=== PATIENT | female | born 2000 | race Caucasian/White ===

== ENCOUNTER 2023-11-22 08:07 | Outpatient (OUT) | payer OTHER, SELFPAY ==
--- NOTE | 2023-11-22 08:10 | US_ITS ---
The [address] [address] Patient Name: SUE ZIMMERMAN MRN: [id number] date: 2000 Sex: F Assigned Patient Location: [facility] Current Patient Location: [facility] Accession/Order Number: [id number] Exam Date: 11/22/2023 08:10 Report Date: 11/22/2023 11:19 At the request of: TRANG GEORGE Procedure: US pelvis w/ transvaginal EXAMINATION: US pelvis w/ transvaginal HISTORY: PELVIC PAIN COMPARISON: No relevant comparison available. FINDINGS: The uterus is normal in size, contour and echotexture measuring 6.9 x 2.7 x 4.6 cm., Anteverted, anteflexed. Endometrium measures 4 mm, normal. Areas of anechoic echogenicity in the cervix, nabothian cysts are favored The right ovary is normal measuring 1.6 x 0.9 x 1.1 cm. Normal color and Doppler flow The left ovary is normal measuring 1. Normal color and Doppler flow No free fluid US/US pelvis w/ transvaginal IMPRESSION: Normal examination. Electronically authenticated by: FERNANDO CHAVEZ Date: 11/22/2023 11:19
== END 2023-11-22 08:08 | disposition home or self-care (01) ==
LOC: NOMS 08:07
PROVIDERS: Family Provider Family Medicine; PCP Family Medicine; Visit Provider Obstetrics & Gynecology
DX: R10.2 Pelvic and perineal pain (principal)
CPT/HCPCS: 76830; 76856

== ENCOUNTER 2023-12-06 20:46 | Outpatient (REF) | payer OTHER, SELFPAY ==
--- OUTSIDE RECORDS SUMMARY | 2023-12-06 20:51 | XMS_ITS | CCD ---
Author Name Unknown Address [address] [place] [address] Organization [facility] Care Team Providers Care Bag Repairer Name Role Phone Zehra Teixeira MD Primary Care Provider TRANG MCKNIGHT Attending Unavailable TRANG MCKNIGHT Attending Unavailable Medications Current Medications Medication Drug Class(es) Dates Sig (Normalized) Sig (Original) desogestrel 0.15 mg / ethinyl estradiol 0.03 mg oral tablet (1 source) Progestin, Estrogen Start: 10-24-2023 take 1 tablet by mouth in the morning, then take 1 tablet by mouth once daily desogestrel-ethinyl estradiol (Apri) 0.15-30 MG-MCG tablet Indications: Encounter for other contraceptive management Take 1 tablet by mouth in the morning for 28 days. Take 1 tablet by mouth daily. 28 tablet 12 10/24/2023 Active Ethinyl Estradiol / norgestimate (2 sources) Progestin, Estrogen Start: 08-22-2023 End: 11-22-2023 Cgf-We-Byqlyj 0.18/0.215/0.25 MG-25 MCG tablet End: 11-22-2023 norgestimate-ethinyl estradi ol (Tri-Linyah) 0.18/0.215/0.25 MG- 35 MCG tablet 1 (one) time each day at the same time 0 11/22/2023 Discontinued (Therapy completed) famotidine 20 mg oral tablet (1 source) Histamine-2 Receptor Antagonist take 1 tablet by mouth at bedtime famotidine (Pepcid) 20 MG tablet 1 tablet Orally at bedtime for 30 day(s) 0 Active fluocinonide 0.5 mg/ml topical cream (1 source) Corticosteroid Start: 03-21-20 23 fluocinonide (Lidex) 0.05 % cream APPLY TO THE AFFECTED AREA(S) on the foot TWICE DAILY for 3 (THREE) weeks then NEEDED for flares 0 03/21/2023 Active ibuprofen 800 mg oral tablet (1 source) Nonsteroidal Anti-inflammatory Drug Start: 10-24-19 24 take 1 tablet by mouth every eight hours for pain ibuprofen 800 MG tablet Indications: Pelvic pain in female Take 1 tablet (800 mg) by mouth every 8 (eight) hours if needed for mild pain for up to 30 doses 30 tablet 0 10/24/2023 Active MULTIPLE VITAMIN IV (1 source) MULTIPLE VITAMIN IV as directed Orally 0 Active mupirocin 0.02 mg/mg topical ointment (1 source) RNA Synthetase Inhibitor Antibacterial Start: 03-21-20 23 mupirocin (Bactroban) 2 % ointment APPLY TO THE AFFECTED AREA(S) on the foot TWICE DAILY 0 03/21/2023 Active omeprazole 40 mg delayed release oral capsule (1 source) Proton Pump Inhibitor omeprazole (PriLOSEC) [address] capsule 1 capsule 0 Active Problems Problem Classification Problem Date Documented Da te Episodic/Chronic Abdominal pain (1 source) Pain in female pelvis; Translations: [Pelvic and perineal pain] 11-17-2023 Episodic Results Test Name Value Interpretation Reference Range Facil ity Urinalysis macro (dipstick) panel (U)Ordered By: Lisha Harper on 11-22-2023 Bilirubin, UA Negative Negative - 4(7 0) +++ mg/dL [facility] Work Phone: Blood, UA Negative Negative - 50 Richard/mcL [facility] Work Phone: Clarity, UA Clear [facility] Work Phone: Color, UA Light Yellow [facility] Work Phone: Glucose, UA Negative Negative - 2000(110) ++++ mg/dL [facility] Work Phone: Interpretation and review of laboratory results Normal [facility] Work Phone: Ketones, UA Negative Negative - 160(16) ++++ mg/dL [facility] Work Phone: Leukocytes, UA Negative Negative - 50 0+++ Cara/mcL [facility] Work Phone: Nitrite, UA Negative Negative - Positive [facility] [employer] Work Phone: pH, UA 55.0 5 - 9 [facility] Work Phone: Protein, UA Negative Negative - 2000(20) ++++ mg/dL [facility] [employer] Work Phone: Spec Grav, UA 1.005 1 - 1.03 [facility] Work Phone: Urobilinogen, UA 1.0 0.2 - 12 mg/dL [facility] [employer] Work Phone: [facility] [employer] Work Phone: Vital Signs Date Time Vital Sign Value Performing Clinician Sandra lity 11-22-2023 09:19-0500 Body height 170.2 cm Trang Juan Luis DO Work Phone: [facility] 11-22-2023 09:19-0500 Body mass index (BMI) [Ratio] 31.32 kg/m2 Trang Juan Luis DO Work Phone: [facility] 11-22-2023 09:19-0500 Body weight 90.72 kg Trang Juan Luis DO Work Phone: [facility] 11-22-2023 09:19-0500 Diastolic blood pressure 76 mm[Hg] Trang Juan Luis DO Work Phone: [facility] 11-22-2023 09:19-0500 Systolic blood pressure 112 mm[Hg] Trang Juan Luis DO Work Phone: [facility] Encounters Encounter Date Encounter Type Care Provider Facility Start: 11-22-2023 End: 11-22-2023 ambulatory TRANG JUAN LUIS Not Available Start: 11-22-2023 End: 11-22-2023 Office outpatient visit 15 minutes Trang Juan Luis DO Work Phone: [facility] Comment on above: Pre-operative exam; Pelvic pain in female Start: 11-22-2023 End: 11-22-2023 Preprocedural examination done Trang Juan Ulis DO Work Phone: [facility] Work Phone: Start: 10-24-2023 End: 10-24-2023 ambulatory TRANG MCKNIGHT Not Available Procedures Date Procedure Procedure Detail Performing Clinician Start: 11-22-2023 Urnls dip stick/tabl et rgnt non-auto w/o micrscp Trang Mcknight DO Work Phone: Plan of Treatment Date Care Activity Detail Author Start: 12-06-2023 End: 12-06-2023 Patient encounter procedure 12/06/2023 9:30 AM EST Office Visit [facility] [address] [place] [address] Trang Mcknight, DO [address] [place] [address] [facility] Start: 06-10-2023 Influenza vaccination Influenza Vacc ine (#1) [facility] Immunizations Immunization Date Immunization Notes Care Provider [facility] 07-26-2018 influenza virus vacc ine, unspecified formulation Trang Juan Luis DO Work Phone: [facility] Payers Date Payer Category Payer Unknown [employer] [id number] 2016-Present [address] [id number] 2016 Unknown [id number] 2000 Unknown [id number] 2000 Unknown [id number] Social History Date Type Detail Facility Start: 10-04-2023 Tobacco smoking stat [facility] Never smoked tobacco [facility] Start: 11-22-2023 Alcohol intake Lifetime non-d deep (finding) [facility] Start: 10-24-2023 History of Social function [facility] Start: 10-24-2023 Tobacco use panel [facility] Start: 10-04-2023 Alcohol Comment caffeine: none [facility] Start: 2000 Sex Assigned At Not on file [facility] History of Present illness Narrative 11-22-2023 Agnes Reza - 11/22/2023 9:50 AM EST Note Date & Type Note Facility 11-22-2023 History of Presen t illness Narrative Reason for Appointment: Patient ID: Sue Zimmerman is a 23 y.o. female who presents for Pre-op Visit Patient presents today for a Pre Op appointment. Patient is scheduled to undergo Diagnostic Laparoscopy, possible TINY, possible FOE, possible BSO on 12/16/[address] Mcknight at [facility]. Current Medications: has a current medication list which includes the following prescription(s): desogestrel-ethinyl estradiol, famotidine, fluocinonide, ibuprofen, multiple vitamin, mupirocin, and omeprazole. Medical History: Active Ambulatory Problems Diagnosis Date Noted No Active Ambulatory Problems Resolved Ambulatory Problems Diagnosis Date Noted No Resolved Ambulatory Problems Past Medical History: Diagnosis Date MRSA (methicillin resistant Staphylococcus aureus) Tonsillitis Family History Problem Relation Name Age of Onset Hypertension Maternal Grandfather Diabetes Paternal Grandfather Hypertension Paternal Grandfather Social History Tobacco Use Smoking status: Never Smokeless tobacco: Not on file Substance Use Topics Alcohol use: Never Comment: caffeine: none Drug use: Not on file Past Surgical History: Procedure Laterality Date OTHER SURGICAL HISTORY FNA Rt breast bud - infant No Known Allergies Review of Systems: Review of Systems Constitutional: Negative. HENT: Negative. Eyes: Negative. Respiratory: Negative. Cardiovascular: Negative. Gastrointestinal: Negative. Genitourinary: Positive for pelvic pain. Musculoskeletal: Negative. Skin: Negative. Neurological: Negative. All other systems reviewed and are negative. Hematological: Negative. Endocrine: Negative. Allergic/Immunologic: Negative. Objective Physical Exam Constitutional: Appearance: Normal appearance. She is well-developed. Cardiovascular: Rate and Rhythm: Normal rate and regular rhythm. Pulmonary: Effort: Pulmonary effort is normal. Breath sounds: Normal breath sounds. Abdominal: General: Bowel sounds are normal. There is no distension. Palpations: Abdomen is soft. Tenderness: There is no abdominal tenderness. There is no guarding or rebound. Musculoskeletal: General: No swelling. Normal range of motion. Right lower leg: No edema. Left lower leg: No edema. Neurological: Mental Status: She is alert and oriented to person, place, and time. Skin: General: Skin is warm and dry. Psychiatric: Mood and Affect: Mood normal. Behavior: Behavior normal. Vitals and nursing note reviewed. Exam conducted with a media/instructional designer present. Vitals: Estimated body mass index is 31.32 kg/m as calculated from the following: Height as of this encounter: 5' 7 . Weight as of this encounter: 200 lb. BP: 112/76 Patient's last menstrual period was 11/03/2023 (approximate). Assessment/Plan Encounter Diagnoses Name Primary? Pre-operative exam Pelvic pain in female Pre Op: Patient is doing well but has complaints of pelvic pain. I have discussed conservative management vs. surgical management with the patient in detail and patient desires surgical management at this time. Patient will undergo Diagnostic Laparoscopy, possible TINY, possible FOE, possible BSO on 12/16/23. Surgical consents were signed, mmc was reviewed, and patient is to proceed to [facility] OR. Follow Up: Patient is to follow up between 1-2 weeks post operative to assess proper healing and recovery from procedure. Documented by: Marian Caban LPN on behalf of Trang Mcknight DO documented in this encounter [facility] Evaluation note Note Date & Type Note Facility Evaluation note Diagnosis Pre-operative exam Unspecified pre-operative examination Pelvic pain in female Unspecified symptom associated with female genital organs documented in this encounter [facility] Summary Purpose Family History No Family History Records Found Advance Directives No Advanced Directives Records Found Additional Source Comments Reason for Visit (unrecogniz ed section and content) Reason Comments Pre-op Visit Care Teams (unrecognized sec tion and content) Bag Repairer Relationship Specialty Start Date End Date Zehra Teixeira MD [address] [place] [address] PCP - General Family Medicine 10/24/23 INFORMATION SOURCE (unrecogn ized section and content) DATE CREATED AUTHOR 11/23/2023 [facility] dical Specialists [facility] FOR RECORDS PERTAINING TO PATIENTS WHO ARE OR HAVE BEEN ENROLLED IN A CHEMICAL DEPENDENCY/SUBSTANCEABUSE PROGRAM, SOME INFORMATION MAY BE OMITTED. This clinical summary was aggregated from multiple sources. Caution should be exercised in using it in the provision of clinical care. This summary normalizes information from multiple sources, and as a consequence, information in this document may materially change the coding, format and clinical context of patient data. In addition, data may be omitted in some cases. CLINICAL DECISIONS SHOULD BE BASED ON THE PRIMARY CLINICAL RECORDS. [facility] provides no warranty or guarantee of the accuracy or completeness of information in this document.
[2023-12-10 16:10] LABS: Age Gdln ACOG Testing Note (.); IGP, rfx Aptima HPV ASCU Note (.)
== END 2023-12-06 20:47 | disposition home or self-care (01) ==
LOC: LAB 20:46
PROVIDERS: Family Provider Family Medicine; PCP Family Medicine; Visit Provider Obstetrics & Gynecology
DX: Z01.419 Encounter for gynecological examination (general) (routine) without abnormal findings (principal)
CPT/HCPCS: G0145